=== PATIENT | female | born 1965 | race Caucasian/White ===

== ENCOUNTER 2019-05-09 18:59 | Inpatient (IN) ==
--- NOTE | 2019-05-09 19:08 | Emergency Department Note ---
Disposition Clinical Impression: Heart palpitations Congestive heart failure Qualifiers: Heart failure type: systolic Heart failure chronicity: unspecified Qualified Code(s): I50.20 - Unspecified systolic (congestive) heart failure Disposition: Admitted As Inpatient Time of Disposition: 21:40 General Adult HPI - General Chief complaint: ED Arrhythmia/Palpitations Stated complaint: Chest palpitations Time Seen by Provider: 05/09/19 19:04 - History of Present Illness Pain Scale: 1 - Related Data Previous Rx's Medication Instructions Recorded Aspirin 81 mg PO DAILY 30 Days #30 tab.chew 05/03/19 Atorvastatin [Lipitor] 80 mg PO HS 30 Days #30 tablet 05/03/19 Lisinopril [Zestril] 2.5 mg PO DAILY 30 Days #30 tablet 05/03/19 Metoprolol XL (24 HR) Succ [Toprol 50 mg PO DAILY 30 Days #30 05/03/19 Xl] tab.er.24h Spironolactone [Aldactone] 12.5 mg PO DAILY 30 Days #30 tablet 05/03/19 Allergies Allergy/AdvReac Type Severity Reaction Status Date / Time Sulfa (Sulfonamide Allergy Hives Verified 05/01/19 22:19 Antibiotics) Past Medical History - Past Medical History Medical history: Reports: other Surgical history: Reports: other Psychiatric history: Reports: no psych history - Social History Smoking Status: Former smoker Smokeless Tobacco Status: No Alcohol use: Reports: none Drug use: Reports: none Course Vital Signs Temperature 98.2 F 05/09/19 19:00 Pulse Rate 104 05/09/19 19:00 Respiratory Rate 18 05/09/19 19:00 Blood Pressure 119/83 05/09/19 19:00 O2 Sat by Pulse Oximetry 97 05/09/19 19:00 Temperature 98.2 F 05/09/19 19:13 Pulse Rate 94 05/09/19 19:41 Respiratory Rate 18 05/09/19 19:13 Blood Pressure 111/79 05/09/19 19:41 O2 Sat by Pulse Oximetry 96 05/09/19 19:41 Oxygen Delivery Oxygen Delivery Room Air Medical Decision Making - Lab Data Result diagrams: 05/09/19 19:32 05/09/19 19:32 Lab Results 05/09/19 05/09/19 05/09/19 Range/Units 19:32 19:32 19:32 WBC 8.7 (4.3-11.1) K/mcL RBC 4.64 (3.82-4.97) M/mcL Hgb 13.6 (11.5-15.4) g/dL Hct 41.3 (35.3-44.9) % MCV 89.0 (83.0-100.0) fL MCH 29.3 (28.0-33.3) pg MCHC 32.9 (31.6-35.5) g/dL RDW 12.9 (11.5-14.5) % Plt Count 257 (140-400) K/mcL MPV 10.0 (9.4-12.4) fL Immature Gran % 0.2 (0-4) % Seg Neutrophils % 66.7 % Lymphocytes % 25.4 % Monocytes % 5.5 % Eosinophils % 1.6 % Basophils % 0.6 % Neutrophils # 5.8 (1.6-8.9) K/mcL Lymphocytes # 2.2 (0.6-4.6) K/mcL Monocytes # 0.5 (0.0-1.3) K/mcL Eosinophils # 0.1 (0.0-0.6) K/mcL Basophils # 0.1 (0.0-0.2) K/mcL Sodium 145 (136-145) mEq/L Potassium 3.8 (3.5-5.1) mEq/L Chloride 105 (98-107) mEq/L Carbon Dioxide 23 (23-29) mEq/L BUN 23 H (6-20) mg/dL Creatinine 1.04 (0.60-1.20) mg/dL Est GFR ( Amer) > 60 (> 60) Est GFR (Non-Af Amer) 55 L (> 60) BUN/Creatinine Ratio 22 (6-26) Glucose 127 H (70-105) mg/dL Calculated Osmolality 305 H (280-300) Calcium 9.3 (8.6-10.3) mg/dL Magnesium 2.1 (1.6-2.6) mg/dL Total Bilirubin 0.3 (0.3-1.0) mg/dL AST 23 (13-39) Units/L ALT 27 (7-52) Units/L Alkaline Phosphatase 50 (34-104) Units/L Troponin I < 0.03 (< 0.04) ng/mL Serum Total Protein 6.3 L (6.4-8.9) g/dL Albumin 4.2 (3.5-5.7) g/dL Globulin 2.1 L (2.4-3.5) g/dL Albumin/Globulin Ratio 2.0 (1.1-2.2) Attestation Statement - Attestation Attestation: I reviewed the residents documentation and agree with the residents assessment and plan of care. I have personally had face to face time with the patient. (Brief History, Brief Exam, and MDM) I personally supervised and was present for the henry/critical portions of the following procedures completed by the resident: (add procedures performed here). [id number] time provided The patient has previously been evaluated for palpitations. She was started on a beta mary recently. She complains of palpitations. She appears in no ac bria distress on exam. She is able to handle it to the bathroom and back without limitation. Triage note and vitals reviewed by me. I attest to supervising the resident physician interpretation of the ECG I reviewed the labs dated 05/02/19
--- NOTE | 2019-05-09 19:20 | Emergency Department Note ---
Disposition Clinical Impression: Heart palpitations Congestive heart failure Qualifiers: Heart failure type: systolic Heart failure chronicity: unspecified Qualified Code(s): I50.20 - Unspecified systolic (congestive) heart failure Disposition: Admitted As Inpatient Referrals: NONE,PCP [Primary Care Provider] - Forms: ED Satisfaction Letter Time of Disposition: 20:31 General Adult HPI - General Chief complaint: ED Arrhythmia/Palpitations Stated complaint: Chest palpitations Time Seen by Provider: 05/09/19 19:04 - History of Present Illness HPI Narrative: Mrs. Pederson is a 53-year-old female presenting to the ED complaining of heart palpitations. Reports to her palpitation is similar to the ones that occurred 10 days ago. She reports she had heart palpitations 10 days ago as to why she had presented to the ED previously was admitted had cardiac workup and was discharged with a Holter monitor. She was recently discharged one week ago on 05/03/19 with past medical history of congestive heart failure diagnosed one week ago with EF of 15-20%. She is unsure as to why the heart palpitations started no recent inciting events. She reports she was sitting down and noted palpitations with some pain under her left axilla radiation of pain to her back. She is denying any worsening of shortness of breath or any chest pain with exertion. Reports she has been taking her medications as prescribed. Denies fever, chills, nausea, emesis, abdominal pain, worsening pain or lower extremity pain. Pain Scale: 1 - Related Data Previous Rx's Medication Instructions Recorded Aspirin 81 mg PO DAILY 30 Days #30 tab.chew 05/03/19 Atorvastatin [Lipitor] 80 mg PO HS 30 Days #30 tablet 05/03/19 Lisinopril [Zestril] 2.5 mg PO DAILY 30 Days #30 tablet 05/03/19 Metoprolol XL (24 HR) Succ [Toprol 50 mg PO DAILY 30 Days #30 05/03/19 Xl] tab.er.24h Spironolactone [Aldactone] 12.5 mg PO DAILY 30 Days #30 tablet 05/03/19 Allergies Allergy/AdvReac Type Severity Reaction Status Date / Time Sulfa (Sulfonamide Allergy Hives Verified 05/01/19 22:19 Antibiotics) Constitutional: Denies: fever, chills, weakness Eyes: Denies: eye pain, vision change ENT ED: Denies: ear pain, epistaxis, congestion, dysphagia Cardiovascular: Reports: chest pain, palpitations, dyspnea on exertion. Denies: edema Respiratory: Reports: dyspnea (Unchanged). Denies: cough, wheezes Gastrointestinal: Denies: abdominal pain, nausea, vomiting Genitourinary: Denies: urgency, dysuria, frequency Integumentary: Denies: rash, abrasion Neurological: Denies: headache, weakness, numbness Psychiatric: Denies: anxiety, depression Endocrine: Reports: fatigue Past Medical History - Past Medical History Medical history: Reports: other Surgical history: Reports: other Psychiatric history: Reports: no psych history - Social History Smoking Status: Former smoker Smokeless Tobacco Status: No Alcohol use: Reports: none Drug use: Reports: none Physical Exam - General General appearance: alert, in no apparent distress - Head Head exam: atraumatic, normocephalic - Eye Eye exam: Present: normal appearance, EOMI. Absent: scleral icterus, con junctival injection - ENT ENT exam: normal exam, normal oropharynx, mucous membranes moist - Neck Neck exam: Present: normal inspection, full ROM, trachea midline - Chest Chest inspection: Present: normal inspection, symmetric chest wall rise - Respiratory Respiratory exam: Present: normal lung sounds bilaterally. Absent: respiratory distress, wheezes - Cardiovascular Cardiovascular exam: Present: regular rate, +S1, +S2, other (EKG shows sinus tachycardia with left bundle-branch block) - Abdominal Exam Abdominal exam: Present: soft, Non-Tender, normal bowel sounds. Absent: distention, guarding, rigidity - Extremities Exam Extremities exam: Present: normal inspection, full ROM. Absent: tenderness, pedal edema - Neurological Exam Neurological exam: Present: alert, oriented X3 (Oriented to person place and time) - Psychiatric Psychiatric exam: Present: normal affect, normal mood - Skin Skin exam: Present: warm, dry, intact Course Vital Signs Temperature 98.2 F 05/09/19 19:00 Pulse Rate 104 05/09/19 19:00 Respiratory Rate 18 05/09/19 19:00 Blood Pressure 119/83 05/09/19 19:00 O2 Sat by Pulse Oximetry 97 05/09/19 19:00 Temperature 98.2 F 05/09/19 19:13 Pulse Rate 94 05/09/19 19:41 Respiratory Rate 18 05/09/19 19:13 Blood Pressure 111/79 05/09/19 19:41 O2 Sat by Pulse Oximetry 96 05/09/19 19:41 Oxygen Delivery Oxygen Delivery Room Air Medical Decision Making - MDM Narrative Medical decision making narrative: Ms. Pederson is a 53-year-old female presenting to the ED complaining of heart palpitations. She reports she was recently admitted to the hospital was recently diagnosed week ago with congestive heart failure with EF of 15-20%. She currently has a Holter monitor in place. She reports her heart palpitations had resolved but returned today additionally reported pain under her left axilla. Does not have a heart catheterization or an AICD placed. She reports she has been taking her medications as prescribed. Score of 4 due to age, history and left bundle branch block. Troponin within Normal Limits. EKG Still shows Left Bundle Branch Block. Due to her symptoms of heart palpitation although currently resolved and recent onset of chest pain that axilla will consider admission to the hospital service. Spoke with Dr. Sue who will accept the patient. - Medical Records Medical records reviewed: Yes I reviewed the patient's medical records. - Lab Data Lab results reviewed: Yes I reviewed the patient's lab results. Result diagrams: 05/09/19 19:32 05/09/19 19:32 Lab Results 05/09/19 05/09/19 05/09/19 Range/Units 19:32 19:32 19:32 WBC 8.7 (4.3-11.1) K/mcL RBC 4.64 (3.82-4.97) M/mcL Hgb 13.6 (11.5-15.4) g/dL Hct 41.3 (35.3-44.9) % MCV 89.0 (83.0-100.0) fL MCH 29.3 (28.0-33.3) pg MCHC 32.9 (31.6-35.5) g/dL RDW 12.9 (11.5-14.5) % Plt Count 257 (140-400) K/mcL MPV 10.0 (9.4-12.4) fL Immature Gran % 0.2 (0-4) % Seg Neutrophils % 66.7 % Lymphocytes % 25.4 % Monocytes % 5.5 % Eosinophils % 1.6 % Basophils % 0.6 % Neutrophils # 5.8 (1.6-8.9) K/mcL Lymphocytes # 2.2 (0.6-4.6) K/mcL Monocytes # 0.5 (0.0-1.3) K/mcL Eosinophils # 0.1 (0.0-0.6) K/mcL Basophils # 0.1 (0.0-0.2) K/mcL Sodium 145 (136-145) mEq/L Potassium 3.8 (3.5-5.1) mEq/L Chloride 105 (98-107) mEq/L Carbon Dioxide 23 (23-29) mEq/L BUN 23 H (6-20) mg/dL Creatinine 1.04 (0.60-1.20) mg/dL Est GFR ( Amer) > 60 (> 60) Est GFR (Non-Af Amer) 55 L (> 60) BUN/Creatinine Ratio 22 (6-26) Glucose 127 H (70-105) mg/dL Calculated Osmolality 305 H (280-300) Calcium 9.3 (8.6-10.3) mg/dL Magnesium 2.1 (1.6-2.6) mg/dL Total Bilirubin 0.3 (0.3-1.0) mg/dL AST 23 (13-39) Units/L ALT 27 (7-52) Units/L Alkaline Phosphatase 50 (34-104) Units/L Troponin I < 0.03 (< 0.04) ng/mL Serum Total Protein 6.3 L (6.4-8.9) g/dL Albumin 4.2 (3.5-5.7) g/dL Globulin 2.1 L (2.4-3.5) g/dL Albumin/Globulin Ratio 2.0 (1.1-2.2) - Radiology Data Radiology results reviewed: Yes I reviewed the patient's radiology results.
[2019-05-09 19:50] LABS: Basophils # 0.1 K/mcL (0.0-0.2); Basophils % 0.6 %; Eosinophils # 0.1 K/mcL (0.0-0.6); Eosinophils % 1.6 %; Hematocrit 41.3 % (35.3-44.9); Hemoglobin 13.6 g/dL (11.5-15.4); Immature Granulocytes % 0.2 % (0-4); Lymphocytes # 2.2 K/mcL (0.6-4.6); Lymphocytes % 25.4 %; Mean Corpuscular HGB Conc 32.9 g/dL (31.6-35.5); Mean Corpuscular Hemoglobin 29.3 pg (28.0-33.3); Monocytes # 0.5 K/mcL (0.0-1.3); Monocytes % 5.5 %; Neutrophils # 5.8 K/mcL (1.6-8.9); Platelet Count 257 K/mcL (140-400); Red Blood Count 4.64 M/mcL (3.82-4.97); Red Cell Distribution Width 12.9 % (11.5-14.5); Segmented Neutrophils % 66.7 %; White Blood Count 8.7 K/mcL (4.3-11.1)
[2019-05-09 20:10] LABS: Alanine Aminotransferase 27 Units/L (7-52); Albumin 4.2 g/dL (3.5-5.7); Alkaline Phosphatase 50 Units/L (34-104); Aspartate Amino Transferase 23 Units/L (13-39); BUN/Creatinine Ratio 22 (6-26); Bilirubin,Total 0.3 mg/dL (0.3-1.0); Blood Urea Nitrogen 23 mg/dL (6-20); Calcium 9.3 mg/dL (8.6-10.3); Carbon Dioxide 23 mEq/L (23-29); Chloride 105 mEq/L (98-107); Globulin 2.1 g/dL (2.4-3.5); Glucose 127 mg/dL (70-105); Magnesium 2.1 mg/dL (1.6-2.6); Osmolality,Calculated 305 (280-300); Potassium 3.8 mEq/L (3.5-5.1); Sodium 145 mEq/L (136-145); Total Protein 6.3 g/dL (6.4-8.9); eGFR For African Americans > 60 (> 60); eGFR For Non-African Americans 55 (> 60)
--- NOTE | 2019-05-09 20:59 | Internal Med History&Physical ---
Date of Encounter: 05/09/19 Time of Encounter: 20:48 Internal Medicine - H&P: HPI Chief complaint: Palpatations History of present illness: Ms. Johnson is a 53 year old female with a past medical history of melanoma and subclinical hypothyroidism who presented to the ED with complaints of palpitations. Of note, patient was recently evaluated for palpitations and atypical chest pain approximately one week ago. Patient was found to have a new left bundle branch block on EKG of unclear chronicity and a echocardiogram demonstrating a EF of 15-20% with severe global left ventricular systolic dysfunction. Nuclear stress test was negative for ischemia. Patient was ev aluated by cardiology, treated for CHF exacerbation and placed on a beta mary, JANE inhibitor and Aldactone. She was discharged with a Holter monitor with repeat echo in 4-6 weeks and follow-up with cardiology in one week after discharged. Patient presented to the ED today after reporting prolonged episode of palpitations earlier this afternoon. Patient was sitting at the time. She also noted a dull achy pain under her left axilla radiating to her back. No aggravating or alleviating factors. She did note some nausea and diaphoresis. No dizziness or lightheadedness. Reports she has been taking her medications as prescribed. Patient is scheduled to follow-up with her PCP tomorrow. Denies fever, chills, nausea, emesis, abdominal pain, worsening pain or lower extremity pain. Laboratory workup including Troponin within Normal Limits. EKG Still shows Left Bundle Branch Block. We will admit for observation and further workup. Past Med Surg Social Fam HX - Past Medical History Medical history: CHF, other Additional medical history: melanoma (on back) Psychiatric history: no psych history - Past Surgical History Surgical History: other Additional surgical history: melanoma removal 1998 - Social History Smoking Status: Former smoker Smokeless Tobacco Status: No Alcohol use: none Drug use: none Internal Medicine - H&P: Meds Aspirin 81 mg PO DAILY 30 Days #30 tab.chew 05/03/19 [Rx] Atorvastatin [Lipitor] 80 mg PO HS 30 Days #30 tablet 05/03/19 [Rx] Lisinopril [Zestril] 2.5 mg PO DAILY 30 Days #30 tablet 05/03/19 [Rx] Metoprolol XL (24 HR) Succ [Toprol Xl] 50 mg PO DAILY 30 Days #30 tab.er.24h 05/03/19 [Rx] Spironolactone [Aldactone] 12.5 mg PO DAILY 30 Days #30 tablet 05/03/19 [Rx] Allergy/AdvReac Type Severity Reaction Status Date / Time Sulfa (Sulfonamide Allergy Hives Verified 05/01/19 22:19 Antibiotics) All Systems PM: A 10-system review of systems was performed and is negative for pertinent findings except as documented above in the HPI. - Constitutional Constitutional: no chills, no fever(s), no night sweats - EENT Eyes: no change in vision, no discharge, no pain, no photophobia Ears: no ear discharge, no ear pain, no tinnitus Nose, mouth and throat: no dysphagia, no nasal discharge, no neck pain, no sore throat - Cardiovascular Cardiovascular ROS IM: no chest pain, no diaphoresis, no dyspnea, no lightheadedness, no palpitations, no syncope - Respiratory Respiratory: no cough, no dyspnea, no wheezing, no excessive phlegm production - Gastrointestinal Gastrointestinal: no abdominal pain, no diarrhea, no hematemesis, no hematochezia, no melena, no nausea, no vomiting - Genitourinary Genitourinary: no change in urinary stream, no dysuria, no flank pain, no hematuria - Musculoskeletal Musculoskeletal ROS IM: no numbness, no tingling - Integumentary Integumentary IM: no rash, no unusual bruising - Neurological Neurological ROS: no confusion, no convulsions, no focal weakness, no numbness, no tingling, no tremor(s) - Hematologic/Lymphatic Hematologic/Lymphatic: no easy bruising - Constitutional Vitals: Temp Pulse Resp BP Pulse Ox 98.2 F 94 18 111/79 96 05/09/19 19:13 05/09/19 19:41 05/09/19 19:13 05/09/19 19:41 05/09/19 19:41 Exam: General: Alert and oriented Skin:Normal color, no rash, no lesions. HEENT:EOM, pupils equal, round and reactive. Cardiovascular:Normal S1 & S2, no rubs, murmurs or gallops. No JVD. Pulse regular. Lungs:Normal breath sounds, no wheezes or crackles. Abdomen:Soft, non-tender, no rigidity. Extremities:No deformity, no edema or tenderness, no joint swelling or clubbing. Neurological:Normal cognition and motor skills. Pulses:Carotid and radial pulses normal +2. Rest of the physical exam is non contributory Internal Med - H&P Results - Labs CBC & Chem 7: 05/10/19 10:03 05/10/19 01:45 Labs: Short CBC 05/09/19 Range/Units 19:32 WBC 8.7 (4.3-11.1) K/mcL Hgb 13.6 (11.5-15.4) g/dL Hct 41.3 (35.3-44.9) % Plt Count 257 (140-400) K/mcL Neutrophils # 5.8 (1.6-8.9) K/mcL BMP 05/09/19 19:32 Sodium 145 Potassium 3.8 Chloride 105 Carbon Dioxide 23 BUN 23 H Creatinine 1.04 Glucose 127 H Calcium 9.3 Cardiac Enzymes 05/09/19 Range/Units 19:32 Troponin I < 0.03 (< 0.04) ng/mL Liver Function 05/09/19 Range/Units 19:32 Total Bilirubin 0.3 (0.3-1.0) mg/dL AST 23 (13-39) Units/L ALT 27 (7-52) Units/L Alkaline Phosphatase 50 (34-104) Units/L Albumin 4.2 (3.5-5.7) g/dL - Assessment and Plan (1) Atypical chest pain Current Visit: Yes Status: Acute Assessment and plan: Patient presenting with atypical chest pain described as dull ache under the left axilla occurring at rest with radiation to the back associated with nausea and diaphoresis. Initial troponin negative. EKG showing left bundle branch block unchanged from previous EKG. Symptoms have resolved. Low suspicion for ACS. -Trend troponin -Telemetry -Continue beta mary, aspirin, JANE inhibitor. -Consult cardiology (2) Heart palpitations Current Visit: Yes Status: Acute Assessment and plan: Patient presented with prolonged episode of palpitations occurring at rest. Patient does have a Holter monitor in place. During previous hospitalization she was diagnosed with subclinical hypothyroidism. -Continue patient on telemetry. -We will consult cardiology for further evaluation and assessment of Holter monitor. (3) CHF (congestive heart failure) Current Visit: Yes Status: Acute Assessment and plan: TTE 05/01/19: LVEF 15-20%, mildly dilated LV, severe global LV systolic dysfunction, no LV thrombus, mild MR, mild PH, normal RV structure and function. -Nuclear stress completed yesterday was negative for ischemia; however possible infarct could not be ruled out--anterior/anteroseptal/inferoseptal/inferior and apex -No evidence of volume overload. Continue patient's home medications. Qualifiers: Heart failure type: systolic Heart failure chronicity: unspecified Qualified Code(s): I50.20 - Unspecified systolic (congestive) heart failure (4) Subclinical hypothyroidism Current Visit: No Status: Chronic Assessment and plan: During previous admission TSH found to be 9.8 with a free T4 of 0.87. Patient currently not on thyroid replacement therapy. Patient was to follow-up with her PCP which is scheduled for tomorrow for further workup. (5) Cardiomyopathy Current Visit: Yes Status: Acute Assessment and plan: TTE 05/01/19: LVEF 15-20%, mildly dilated LV, severe global LV systolic dysfunction, no LV thrombus, mild MR, mild PH, normal RV structure and function. -Nuclear stress completed negative for ischemia; however possible infarct could not be ruled out--anterior/anteroseptal/inferoseptal/inferior and apex. Suspect NICMP, ? tachycardia induced. -Continue BB, jane inhibitor, aldactone. Qualifiers: Cardiomyopathy type: unspecified Qualified Code(s): I42.9 - Cardiomyopathy, unspecified (6) DVT prophylaxis Current Visit: No Status: Acute Assessment and plan: Subcutaneous heparin - Time Spent With Patient Total time spent is greater than 50% in coordination of care (as documented) at patient's floor/unit and/or counseling patient:
[2019-05-09] MEDS ORDERED: Naloxone 0.4 MG/ML INJ IVP PRN (21:23)
[2019-05-09] MEDS: Metoprolol XL (24 HR) Succ 50 MG TAB.ER.24H PO SCH (22:04)
[2019-05-09] MEDS: Aspirin 81 MG TAB.CHEW PO SCH (22:04)
[2019-05-09] MEDS: *HR* Heparin 5,000 UNIT/ML VIAL SQ SCH (22:06)
[2019-05-09] MEDS: Acetaminophen 325 MG TABLET PO PRN (22:37)
[2019-05-10 02:48] LABS: Hematocrit 39.6 % (35.3-44.9); Mean Corpuscular HGB Conc 32.8 g/dL (31.6-35.5); Mean Corpuscular Hemoglobin 29.3 pg (28.0-33.3); Mean Corpuscular Volume 89.2 fL (83.0-100.0); Mean Platelet Volume 10.6 fL (9.4-12.4); Platelet Count 253 K/mcL (140-400); Red Blood Count 4.44 M/mcL (3.82-4.97); White Blood Count 7.8 K/mcL (4.3-11.1)
[2019-05-10 03:13] LABS: Alanine Aminotransferase 24 Units/L (7-52); Albumin 3.7 g/dL (3.5-5.7); Albumin/Globulin Ratio 1.9 (1.1-2.2); Alkaline Phosphatase 44 Units/L (34-104); Aspartate Amino Transferase 19 Units/L (13-39); BUN/Creatinine Ratio 22 (6-26); Bilirubin,Total 0.5 mg/dL (0.3-1.0); Blood Urea Nitrogen 21 mg/dL (6-20); Calcium 9.1 mg/dL (8.6-10.3); Carbon Dioxide 23 mEq/L (23-29); Chloride 108 mEq/L (98-107); Glucose 97 mg/dL (70-105); Osmolality,Calculated 293 (280-300); Potassium 3.7 mEq/L (3.5-5.1); Sodium 140 mEq/L (136-145); Total Protein 5.7 g/dL (6.4-8.9); eGFR For African Americans > 60 (> 60); eGFR For Non-African Americans > 60 (> 60)
[2019-05-10 03:21] LABS: Thyroid Stimulating Hormone 4.293 mcIU/mL (0.340-5.600)
[2019-05-10] MEDS: *HR* Heparin 5,000 UNIT/ML VIAL SQ SCH (04:26)
--- NOTE | 2019-05-10 08:39 | Cardiology Consult Note ---
<Torie Avelar N - Last Filed: 05/10/19 10:10> Date of Encounter: 05/10/19 Time of Encounter: 08:38 Assessment and Plan (1) NSTEMI (non-ST elevated myocardial infarction) Current Visit: Yes Status: Acute Patient presented with atypical chest pain and palpitations, with associated nausea and diaphoresis. Initial troponin <0.03; however, repeat troponins show elevation at 0.13, 0.35. Patient denies any recurrent palpitations since the t nicola of admission, though she did have bilateral hand tingling earlier this morning. Review of overnight telemetry shows average HR 82 with no significant pauses and no signifiant ventricular ectopy. ECG shows LBBB, but no new ST or T-wave abnormalities as compared to prior studies. Recommend continuation of heparin gtt and NPO diet in anticipation of LHC later today. (2) Cardiomyopathy Current Visit: Yes Status: Acute Unknown cause; consider ischemic vs. nonischemic etiologies. Patient reports first experiencing palpitations prior to ED visit and subsequent hospitalization on 05/01/2019. Medication therapy with spironolactone, toprol, and lisinopril was initiated during that admission, which patient reports tolerating well. She denies any recurrent palpitations prior to yesterday afternoon. Patient does have elevated troponins that are uptrending: <0.03, 0.13, 0.35. With her underlying cardiomyopathy of unknown origin and chest discomfort/palpitations, patient is at high risk for sudden cardiac . Recommend [facility] for further evaluation and intervention. Qualifiers: Cardiomyopathy type: unspecified Qualified Code(s): I42.9 - Cardiomyopathy, unspecified (3) Left bundle branch block (LBBB) Current Visit: No Status: Chronic (4) CHF (congestive heart failure) Current Visit: Yes Status: Acute Patient found to have CHF, with LVEF 15-20% on echocardiogram performed on 05/01/2019. Laboratory studies were significant for mild elevation in BNP. Clinically, patient does not appear to be volume overloaded and does not appear to be in an acute CHF exacerbation. Continue current medications of spironolactone 12.5mg, toprol XL 50mg, and lisinopril 2.5mg. Qualifiers: Heart failure type: systolic Heart failure chronicity: unspecified Qualif ied Code(s): I50.20 - Unspecified systolic (congestive) heart failure (5) Subclinical hypothyroidism Current Visit: No Status: Chronic Patient was found to have elevated TSH of 9.844 on 05/01/2019, with T3/T4 WNL. Repeat TSH on 05/10/2019 was WNL at 4.293. Patient has not been started on medical therapy for this problem, as she was supposed to establish care with a new PCP this morning. Further workup and management per primary team. Discussion w patient/family: The assessment and plan as outlined above was discussed with the patient and/or family members who expressed understanding and agreement. All questions were answered. Thank you for involving us in the care of your patient. Please call with any questions. History of Present Illness Consult date: 05/09/19 Requesting physician: Torsten [place] Consult reason: Atypical chest pain/palpitations Chief complaint: Palpitations History of present illness: Ms. Johnson is a 53 year old female with a history of melanoma who presented to the emergency department yesterday for evaluation of palpitations. Patient was hospitalized at this facility on 05/01/2019 for the same problem. Cardiac workup during that admission revealed previously undiagnosed LBBB, cardiomyopathy, and CHF with LVEF 15-20%. Patient was started on medication for management, and discharged with a 4-week holter monitor on 05/04/2019. She was also found to have an elevated TSH and normal T3/T4 during that visit, consistent with for subclinical hypothyroidism; however, no treatment has been initiated thus far. Cardiology consult was placed for recommendations regarding recurrent palpitations and atypical chest pain. Patient reports that she developed palpitations yesterday afternoon that were not precipitated by any particular activity, and were associated with substernal chest "discomfort" with radiation to the left axilla/ribcage. She also reports associated diaphoresis and nausea, that started at the same time as her palpitations. These symptoms resolved after several hours yesterday, though she does report some bilateral hand tingling earlier this morning. She denies any shortness of breath, but does note that she has been more fatigued recently, though not to the point of limiting her daily activities. Previous cardiac testing: * ECG 05/01/2019: Sinus tachycardia with PACs. Probable left atrial enlargement. Left axis deviation. Left bundle branch block. * Echocardiogram 05/01/2019: LVEF 15-20%. Mildly dilated left ventricle. Severe global left ventricular systolic dysfunction. Indeterminate diastolic function. There is no LV thrombus. Atypical septal motion consistent with bundle branch block. Normal right ventricular structure and function. Mild mitral regurgitation. Mild pulmonary hypertension. * Regadenoson Nuclear Stress Test 05/01/2019: Pharmacologic stress ECG non-diagnostic for ischemia due to baseline LBBB. Gated EF = 18%. Left ventricle dilated. LVEDV = 243mL. Global hypokinesis of left ventricle in stress. Large sized, moderate intensity, fixed perfusion defect throughout anterior, anteroseptal, inferoseptal, inferior, and apex segments. Prior infarct(s) not excluded. Perfusion imaging negative for ischemia. Past Med Surg Social Fam HX - Past Medical History Medical history: CHF, other Additional medical history: melanoma (on back) Psychiatric history: no psych history - Past Surgical History Surgical History: other Additional surgical history: melanoma removal 1998 - Social History Smoking Status: Former smoker Smokeless Tobacco Status: No Alcohol use: none Drug use: none - Family History Grandfather Hx Family Cardiac Disorders: Yes Medications and Allergies Aspirin 81 mg PO DAILY 30 Days #30 tab.chew 05/03/19 [Rx] Atorvastatin [Lipitor] 80 mg PO HS 30 Days #30 tablet 05/03/19 [Rx] Lisinopril [Zestril] 2.5 mg PO DAILY 30 Days #30 tablet 05/03/19 [Rx] Metoprolol XL (24 HR) Succ [Toprol Xl] 50 mg PO DAILY 30 Days #30 tab.er.24h 05/03/19 [Rx] Spironolactone [Aldactone] 12.5 mg PO DAILY 30 Days #30 tablet 05/03/19 [Rx] Allergy/AdvReac Type Severity Reaction Status Date / Time Sulfa (Sulfonamide Allergy Hives Verified 05/01/19 22:19 Antibiotics) All Systems Review: The remainder of the systems were reviewed and are negative - Constitutional Constitutional: fatigue, no weakness - Cardiovascular Cardiovascular: chest pain at rest, chest pain with exertion, diaphoresis, radiating jaw, neck or arm pain, palpitations, no claudication, no dyspnea at rest, no dyspnea on exertion, no irregular heart rhythm, no leg edema - Respiratory Respiratory: no dyspnea - Gastrointestinal Gastrointestinal: nausea, no abdominal pain - Neurological Neurological: tingling Physical Examination Vital Signs, Last 4 Hours Temp Pulse Resp BP Pulse Ox 05/10/19 07:36 97.5 F L 94 16 102/71 95 General: Conversant, No Apparent Distress HEENT: Atraumatic, Normocephaly, Mucus Membranes Moist Cardiac: Reg Rate and Rhythm, Normal S1 and S2, No Murmur Lungs: Normal Breath Sounds, No Wheeze, Rales, Rhonchi Neuro: Alert and responsive, No focal deficits noted Abdomen: Soft, Non-Tender Skin: No rashes noted on visualized skin Musculoskeletal: No Chest Wall Tenderness Extremities: No Clubbing, No Cyanosis, No Edema, Normal Pulses Results 05/10/19 01:45 05/10/19 01:45 Lab Results 05/09/19 05/09/19 05/09/19 19:32 19:32 19:32 WBC 8.7 Hgb 13.6 Hct 41.3 Plt Count 257 Sodium 145 Potassium 3.8 Chloride 105 Carbon Dioxide 23 BUN 23 H Creatinine 1.04 Glucose 127 H Calcium 9.3 Magnesium 2.1 Total Bilirubin 0.3 AST 23 ALT 27 Alkaline Phosphatase 50 Troponin I < 0.03 B-Natriuretic Peptide TSH 05/10/19 05/10/19 05/10/19 01:45 01:45 01:45 WBC 7.8 Hgb 13.0 Hct 39.6 Plt Count 253 Sodium 140 Potassium 3.7 Chloride 108 H Carbon Dioxide 23 BUN 21 H Creatinine 0.94 Glucose 97 Calcium 9.1 Magnesium Total Bilirubin 0.5 AST 19 ALT 24 Alkaline Phosphatase 44 Troponin I 0.13 H* B-Natriuretic Peptide TSH 4.293 05/10/19 01:45 WBC Hgb Hct Plt Count Sodium Potassium Chloride Carbon Dioxide BUN Creatinine Glucose Calcium Magnesium Total Bilirubin AST ALT Alkaline Phosphatase Troponin I B-Natriuretic Peptide 554 H TSH Consult Discharge Plan - Plan Referrals: NONE,PCP [Primary Care Provider] - <Shavonne Prakash - Last Filed: 05/10/19 11:05> Date of Encounter: 05/10/19 - Attending Attestation I examined this patient and my medical decision-making was reviewed with the Resident Physician. I agree with the documented findings, disposition and treatment plan as described. Ms. Johnson presents for recurrent palpitations now having chest discomfort. Recently admitted and diagnosed with new cardiomyopathy. Patient developed palpitations yesterday associated with chest pressure prompting her visit. No symptoms of palpitations or chest pressure overnight. Denies dyspnea, LE edema, abdominal distention, PND or orthopnea. AAOx3, conversant, NAD on exam No appreciable cardiac murmurs, normal S1/S2, no gallop/rub, no congestive signs, normal distal pulses ECG demonstrates LBBB unchanged from prior Labs demonstrate elevated troponin, normal renal function, normal TSH, BNP 554 Impression/Plan: 1. NSTEMI: Elevated troponin now 0.35 in setting of chest discomfort and recent abnormal stress test demonstrating possible prior infarct. Recently diagnosed with new cardiomyopathy, LVEF 15-20%. Discussed options with patient including R/B/A of [facility]. Patient expressed understanding and has decided to proceed. All questions answered. No upcoming elective procedures. Normal renal function. Full Code. 2. Cardiomyopathy: Newly diagnosed, etiology uncertain at this time. Recommend [facility] to rule out obstructive CAD. She is not volume overloaded on exam. Continue medical therapy. Assessment and Plan Discussion w patient/family: The assessment and plan as outlined above was discussed with the patient and/or family members who expressed understanding and agreement. All questions were answered. Thank you for involving us in the care of your patient. Please call with any questions. History of Present Illness History of present illness: Ms. Johnson is a 53 year old female All Systems Review: The remainder of the systems were reviewed and are negative Physical Examination Vital Signs, Last 4 Hours Temp Pulse Resp BP Pulse Ox 05/10/19 09:35 99.5 F 82 16 107/74 98 05/10/19 07:36 97.5 F L 94 16 102/71 95 Results 05/10/19 10:03 05/10/19 01:45 Lab Results 05/09/19 05/09/19 05/09/19 19:32 19:32 19:32 WBC 8.7 Hgb 13.6 Hct 41.3 Plt Count 257 INR Sodium 145 Potassium 3.8 Chloride 105 Carbon Dioxide 23 BUN 23 H Creatinine 1.04 Glucose 127 H Calcium 9.3 Magnesium 2.1 Total Bilirubin 0.3 AST 23 ALT 27 Alkaline Phosphatase 50 Troponin I < 0.03 B-Natriuretic Peptide TSH 05/10/19 05/10/19 05/10/19 01:45 01:45 01:45 WBC 7.8 Hgb 13.0 Hct 39.6 Plt Count 253 INR Sodium 140 Potassium 3.7 Chloride 108 H Carbon Dioxide 23 BUN 21 H Creatinine 0.94 Glucose 97 Calcium 9.1 Magnesium Total Bilirubin 0.5 AST 19 ALT 24 Alkaline Phosphatase 44 Troponin I 0.13 H* B-Natriuretic Peptide TSH 4.293 05/10/19 05/10/19 05/10/19 01:45 08:59 10:03 WBC 8.9 Hgb 13.9 Hct 42.5 Plt Count 279 INR Sodium Potassium Chloride Carbon Dioxide BUN Creatinine Glucose Calcium Magnesium Total Bilirubin AST ALT Alkaline Phosphatase Troponin I 0.35 H* B-Natriuretic Peptide 554 H TSH 05/10/19 10:03 WBC Hgb Hct Plt Count INR 1.1 Sodium Potassium Chloride Carbon Dioxide BUN Creatinine Glucose Calcium Magnesium Total Bilirubin AST ALT Alkaline Phosphatase Troponin I B-Natriuretic Peptide TSH
[2019-05-10] MEDS ORDERED: *HR* Heparin 5,000 UNIT/ML VIAL IVP PRN ×2 (09:40)
[2019-05-10] MEDS ORDERED: *HR* Heparin 5,000 UNIT/ML VIAL IVP ONE (09:40)
[2019-05-10] MEDS ORDERED: Heparin 25,000 UNIT/250 ML D5W 25,000 UNIT/250 ML IV.SOLN IVC SCH (09:45)
[2019-05-10 10:29] LABS: Hematocrit 42.5 % (35.3-44.9); Hemoglobin 13.9 g/dL (11.5-15.4); Mean Corpuscular HGB Conc 32.7 g/dL (31.6-35.5); Mean Corpuscular Hemoglobin 28.8 pg (28.0-33.3); Mean Corpuscular Volume 88.2 fL (83.0-100.0); Mean Platelet Volume 10.2 fL (9.4-12.4); Platelet Count 279 K/mcL (140-400); Red Blood Count 4.82 M/mcL (3.82-4.97); Red Cell Distribution Width 12.9 % (11.5-14.5); White Blood Count 8.9 K/mcL (4.3-11.1)
[2019-05-10] MEDS: Spironolactone 25 MG TABLET PO SCH (10:34)
[2019-05-10 10:38] LABS: Heparin anti-factor XA UFH 0.04 IU/mL (0.30-0.70); INR 1.1; Prothrombin Time 12.2 Seconds (9.4-12.1)
[2019-05-10] MEDS ORDERED: ISOVUE-370 200 ML INFUS..BTL ONE (13:38)
[2019-05-10] MEDS ORDERED: 0.9 % Sodium Chloride 1,000 ML ONE ×2 (13:38)
[2019-05-10] MEDS ORDERED: Heparin 1,000 UNITS/500 mL 500 ML ONE (13:38)
[2019-05-10] MEDS ORDERED: *HR* Heparin 10,000 UNIT/10 ML VIAL ONE (13:38)
[2019-05-10] MEDS ORDERED: Nitroglycerin 1,000 MCG/10 ML VIAL IV ONE (13:38)
--- NOTE | 2019-05-10 13:43 | Pre-Sedation Evaluation ---
Pre-sedation evaluation - Pre-sedation checklist Date of procedure: 05/10/19 Procedure: [facility] Recent Vitals: Last Vital Signs Temp 98.4 F 05/10/19 11:24 Pulse 88 05/10/19 11:24 Resp 16 05/10/19 11:24 BP 102/68 05/10/19 11:24 Pulse Ox 97 05/10/19 11:24 H&P (including ROS) documented in medical record: Yes Previous reaction to sedatives/anesthetics: No Dietary Status: NPO 6 hours prior to procedure Airway Assessment: Patient can open mouth completely, TMJ function normal, Micrognathia (under-bite, receding chin) absent, Neck with adequate range of motion Dentition: No loose teeth or bridges Possible difficult airway: No ASA Classification *see protocol: CLASS II-Mild systemic disease Plan of Care: Pt appropriate candidate for procedure/moderate/conscious sedation, Risks/benefits of procedure/sedation discussed w/ patient/family Cardiac Registry (Cardio Only) - Functional Capacity Functional Capacity: >=4 METS with symptoms - Clincal Frailty Scale Clinical Frailty Scale: Vulnerable
[2019-05-10] MEDS ORDERED: *HR* Midazolam HCl 2 MG/2 ML VIAL ONE (13:55)
[2019-05-10] MEDS ORDERED: *HR* FentaNYL (PF) 100 MCG/2 ML VIAL ONE (13:55)
--- NOTE | 2019-05-10 14:40 | Invasive Diagnostic Lab Proc ---
Name: Becky Johnson Date of Study: 05/10/2019 Date: 1965 Ht: 62.9in Medical Record#: [id number] Age: 53 Wt: 153.22lb Gender: Female BSA: 1.73 Order #: [id number] BMI: 27.22 Physicians Procedure Physician: Mira Jimenez MD, [facility] Referring MD: Referring MD: Staff Name Position Time In Philly Short RN Monitor 01:50 PM Radha Tony RN It Instructor 01:50 PM Santa Enamorado RT (R) Scrub 01:50 PM Philly Short RN Monitor [place]am[place]ado RT (R) Scrub Radha Tony RN It Instructor 01:52 PM Indications Indication Non-Stemi Procedures Performed Procedure L HRT ARTERY/VENTRICLE ANGIO Pre-Procedure Checklist Informed consent is complete signed and on chart. H&P is on chart. ID band is on and ID verified with patient. Patient NPO for procedure The procedure was described for the patient and questions were answered. Blood Pressure: 102/68 ECG is on chart. Rhythm: NSR Plan of Care Patient will tolerate the procedure without complications. Adequate level of comfort will be maintained. Hemodynamics will remain stable Patient will recover from procedure without complications. Respiratory function will be maintained. Cardiac rhythm will remain stable. Patient temperature will be maintained. Patient and/or family have verbalized understanding of the procedure. Patient Education Chief Complaint/Reason for Test: Cardiac Cath Developmental Category: Adult (18-64 years) Developmentally Appropriate for Age: Yes Learning Barriers: None Education Needs: Procedure Education Method: Verbal Information Taught: Cardiac Cath Educational Evaluation: Able to repeat information Intravenous Access Time IV Size Location DC'd Fluid/Drip Rate Units RN 01:50 PM 18g 1 1/4" Patent On Arrival Rt Wrist 0.9NaCl 25 ml/hr Radha Tony RN Allergies Sulfa (Sulfonamide Antibiotics) Vital Signs Time BP (mmHg) HR (bpm) O2 Sat. RR (bpm) LOC 02:04 PM / % 5 = Fully awake and oriented or at pre-proc level 01:57 PM 118 / 78 111 99 % 18 02:02 PM 111 / 78 110 98 % 12 02:07 PM 105 / 73 103 98 % 26 02:12 PM 104 / 73 100 98 % 17 Procedural Medications Time Medication Dose Units Method Given By 02:01 PM Versed 2 mg Intravenous Radha Tony RN 02:01 PM Fentanyl 50 mcg Intravenous Radha Tony RN 02:01 PM Oxygen 2 L/min nasal cannula Radha Tony RN 02:01 PM Lidocaine 2% 18 ml Subcutaneous Mira Jimenez MD, [facility] ASA Classification: CLASS II- Mild systemic disease (i.e. well-controlled diabetes, hypertension, asthma, cigarette smoking) Luz Score Preprocedure Postprocedure Activity 2- Moves 4 extremities sustained head lift Activity Circulation 2- SBP +/= 20 points of pre-anesthetic level Circulation Consciousness 2- Awake and alert oriented x 3 Consciousness O2 Saturation 2- Able to maintain O2 satruation of 92% on room air O2 Saturation Respiratory 2- Able to deep breathe and cough well Respiratory Total Score 10 Total Score Contrast Agent: Isovue Diagnostic Contrast: 58 ml Total Contrast: 58 ml Fluoro Dose: 17 mGy Procedure Log Time Note Enter By 01:51 PM Pt arrived to hospital laboratory technician 2 at 13:51 gdeck 01:52 PM Philly Short RN Position: Monitor Time in: 13:50 gdeck 01:52 PM Santa Enamorado (R) Position: Scrub Time in: 13:50 gdeck 01:52 PM Radha Tony RN Position: It Instructor Time in: 13:50 gdeck 01:52 PM Case Delayed No gdeck 01:55 PM Procedure start 13:55 gdeck 01:55 PM Physician arrived 13:55 gdeck 01:55 PM Robbi and vladislav completed gdeck 01:55 PM Sign in performed according to hospital policy. Informed consent was obtained. gdeck 01:56 PM CathStat 01:56 PM Vitals capture started with the following parameters, Patient=Adult, Interval=5 min, Initial Fksnbcze=340 mmHg, Deflation Rate=3 mmHg, Cuff placed on Right Arm 01:57 PM LY=337 bpm, WPCA=419/78 mmhg, SpO2=99.0 %, Resp=18 B/min 01:57 PM Hair removed from procedure site in procedure lab using clippers. Bilateral groin prepped with Chloraprep by Santa Enamorado (R), then patient was draped. Skin intact. gdeck 02:00 PM ASA Class CLASS II- Mild systemic disease (i.e. well-controlled diabetes, hypertension, asthma, cigarette smoking) gdeck 02:00 PM Clinical Presentation: Stable angina gdeck 02:00 PM Time out was performed according to hospital policy. Conscious sedation and anesthesia was achieved (see medication log with in this report above) gdeck 02:01 PM Time: 14:01 Versed 2 mg Intravenous Given by Radha Tony RN gdeck 02:01 PM Time: 14:01 Fentanyl 50 mcg Intravenous Given by Radha Tony RN gdeck 02: PM Time: 14: Oxygen on at 2 L/min per nasal cannula by Radha Tony RN gdeck 02:02 PM Time: 14:01 18 ml Lidocaine 2% to right groin Subcutaneous Given by Mira Jimenez MD, [facility] gdeck 02:02 PM AP=678 bpm, DIJB=299/78 mmhg, SpO2=98.0 %, Resp=12 B/min, EtCO2=35 mmHg 02:03 PM Access obtained by percutaneous puncture. 5Fr 10cm Terumo Parks sheath placed in right Femoral artery. [id number] gdeck 02:03 PM Pressure channel 1 zeroed. 02:03 PM 5Fr FL 4 catheter inserted over the wire DN gdeck 02:03 PM LCA angiography performed in multiple views. gdeck 02:03 PM Recorded Pressure: Ao, XS=631, Condition=Condition 1 (Aorta) Ao 116/87/97 02:04 PM Patient charges- Angio tray pack, Navilyst 3mm J, Pulse Oximetry and ACIST tubing and transducer gdeck 02:04 PM Time: 14:04 Patient comfortable and pain free: Yes gdeck 02:05 PM Time: 14:04LOC: 5 = Fully awake and oriented or at pre-proc level gdeck 02:05 PM Catheter removed gdeck 02:05 PM 5Fr FR 4 catheter inserted over the wire DN gdeck 02:05 PM RCA angiography performed in multiple views. gdeck 02:06 PM Recorded Pressure: Ao, ZB=259, Condition=Condition 1 (Aorta) Ao 109/-1/32 02:06 PM Catheter removed gdeck 02:07 PM Coronary Dominance: right gdeck 02:07 PM 5Fr Pigtail catheter inserted over the wire DN gdeck 02:07 PM Catheter crossed the aortic valve and was selectively placed in the left ventricle.07/15 Pressures recorded on pullback for left heart catheterization. gdeck 02:07 PM WB=644 bpm, VTFN=484/73 mmhg, SpO2=98 %, Resp=26 B/min 02:07 PM Bolus angiogram of left Ventricle complete: 8 ml/sec for a total of 24 mls gdeck 02:07 PM Pressure channel 1 zeroed. 02:08 PM Recorded Pressure: LV, CN=765, Condition=Condition 1 (Left Ventricle) LV 105/1/98 02:08 PM Recorded Pressure: LV, CC=960, Condition=Condition 1 (Left Ventricle) LV 102/11/99 02:08 PM Recorded Pressure: LV, Ao, GD=491, Condition=Condition 1 (Left Ventricle) LV 84/33/81, (Aorta) Ao 87/37/61 02:09 PM Catheter removed over the wire gdeck 02:09 PM Time: 14:04 Patient comfortable and pain free: Yes gdeck 02:10 PM right femoral angiogram hand injected gdeck 02:10 PM Procedure completed at 14:10 05/10/2019 gdeck 02:12 PM Sign out completed: Radiation Dose 57 mGy, 16.8 Gy/cm2 Fluoro Time: 1 Isovue 370 - 200ml contrast 58 ml given by Mira Jimenez MD, [facility]. Complications: None. 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 Sedation minutes 9. Cardiac Rehab Consult needed: No. Confirmed administered medications: Yes gdeck 02:12 PM MW=918 bpm, WPYT=433/73 mmhg, SpO2=98 %, Resp=17 B/min 02:12 PM Arterial sheath pulled, Mynx closure device used and was Successful [id number] S/N. gdeck 02:12 PM Post ECG Sinus Tachycardia gdeck 02:12 PM Post Blood Pressure 104/73 gdeck 02:13 PM 14:12 Post Pulses Bilateral DP & PT 2+ gdeck 02:13 PM Information taught Mynx and Cardiac Cath gdeck 02:13 PM Education needs Procedure and Plan of Care gdeck 02:13 PM Learning barriers :None gdeck 02:13 PM Education Methods Verbal gdeck 02:13 PM Education evaluation Able to repeat information gdeck 02:15 PM Time: 14:09 Patient comfortable and pain free: Yes gdeck 02:15 PM Site status No bleeding/hematoma - Rt Groin as reported by Santa Enamorado RT (R) at 14:15 gdeck 02:15 PM Opsite applied gdeck 02:16 PM Delay to floor No gdeck 02:16 PM Family placed in consult room. gdeck 02:16 PM Complications: None gdeck 02:16 PM Report given to Pooja RAMOS Pt taken to 3B Room #38. 14:16 gdeck 02:18 PM Patient out of room: 14:18 gdeck 02:21 PM Did you address UMBERTO flow and Dominance? YesCoronary Dominance: right gdeck 02:33 PM What is the NYHA Class? Class 3 gdeck Complications Complication None None Hemodynamics Pressures Site Systolic/A Wave Diastolic/V Wave Mean AO 116 87 97 AO 109 -1 32 LV 105 1 98 LV 102 11 99 LV 84 33 81 AO 87 37 61 Post Procedure Information Blood Pressure: 104/73 mmHg Rhythm: Sinus Tachycardia Post procedural instructions were given Closure Device Time Device Success/Fail 05/10/2019 2:15:00 PM MynxGrip Successful Site Checks Time Location Status Staff Sheath In? Note 02:15 PM Rt Groin No bleeding/hematoma Santa Enamorado RT (R) Pulses Time Site Pre-Procedure Post-Procedure Note Bilateral radial 2+ Bilateral DP 2+ 2:12:00 PM Bilateral DP & PT 2+ Updated by Philly Short RN on 05/10/2019 2:34:20 PM Philly Short RN electronically signed on 05/10/2019 2:35:26 PM with status of Final
--- NOTE | 2019-05-10 16:13 | Internal Med Progress Note ---
Hospitalist Progress Note - Encounter Date of Encounter: 05/10/19 Time of Encounter: 16:09 - Subjective Interval History: Ms. Johnson is a 53 year old female with a past medical history of melanoma and subclinical hypothyroidism who recently dx with severe cardiomyopathy / systolic CHF with LVEF @ 15-20%, now she presented to the ED with complaints of p alpitations and SOB. Patient was found to have a new left bundle branch block on EKG of unclear chronicity and a echocardiogram demonstrating a EF of 15-20% with severe global left ventricular systolic dysfunction. Nuclear stress test was negative for ischemia. Patient was evaluated by cardiology, treated for CHF exacerbation and placed on a beta mary, JANE inhibitor and Aldactone. She was discharged with a Holter monitor with repeat echo in 4-6 weeks and follow-up with cardiology in one week after discharged. She also noted a dull achy pain under her left axilla radiating to her back. EKG Still shows Left Bundle Branch Block. Patient was admitted in the hospital and placed on hall monitor. Her troponin started trending up, peaked at 0.35. She was started on Heparin gtt. She denied any active CP - Exam Vitals: Temp Pulse Resp BP Pulse Ox 98.4 F 88 16 102/68 97 05/10/19 11:24 05/10/19 11:24 05/10/19 11:24 05/10/19 11:24 05/10/19 11:24 Exam: Gen: Alert, awake, Oriented to time,place and person Chest: Diminished breath sounds B/L, No wheezing, No crackles, No rales Heart: S1S2+ RRR No murmurs Abd: Soft, NT, BS +, No organomegaly Ext: No edema, pulses are palpable, No calf tenderness Neuro : No acute focal neuro deficits noticed Skin: No rash. - Assessment and Plan (1) Atypical chest pain Current Visit: Yes Status: Acute Assessment and Plan: Patient presenting with atypical chest pain described as dull ache under the left axilla occurring at rest with radiation to the back associated with nausea and diaphoresis She did have NSTEMI - Trop peaked at 0.35 Cont ASA,Lipitor, Metoprolol, and Lisinopril She was seen by cardiology and scheudled for [facility] cont Heparin gtt Patient does need to stay in the hospital more than 2 midnights due to her complex medical problems. So we will change him to full admission today. I did review my colleague Dr. Montana's H & P including HPI, PMH, PSH, FH, SH, and ROS no changes noticed (2) NSTEMI (non-ST elevated myocardial infarction) Current Visit: Yes Status: Acute Assessment and Plan: She did have NSTEMI - Trop peaked at 0.35 Cont ASA,Lipitor, Metoprolol, and Lisinopril She was seen by cardiology and scheudled for [facility] cont Heparin gtt (3) Cardiomyopathy Current Visit: Yes Status: Acute Assessment and Plan: TTE 05/01/19: LVEF 15-20%, mildly dilated LV, severe global LV systolic dysfunction, no LV thrombus, mild MR, mild PH, normal RV structure and function. In mild exacerbation given lasix IV x 1 dose resumed home meds, ASA, Lipitor, Aldactone , Metoprolol and Lisinopril (4) CHF (congestive heart failure) Current Visit: Yes Status: Acute Assessment and Plan: as above (5) Subclinical hypothyroidism Current Visit: No Status: Chronic Assessment and Plan: started on low dose synthroid (6) Heart palpitations Current Visit: Yes Status: Acute Assessment and Plan: scheduled for [facility] today (7) DVT prophylaxis Current Visit: No Status: Acute Assessment and Plan: on heparin - Time Spent with Patient Total time spent is greater than 50% in coordination of care (as documented) at patient's floor/unit and/or counseling patient: Internal Medicine: Result - Labs CBC & Chem 7: 05/10/19 10:03 05/10/19 01:45 Labs: Short CBC 05/09/19 05/10/19 05/10/19 Range/Units 19:32 01:45 10:03 WBC 8.7 7.8 8.9 (4.3-11.1) K/mcL Hgb 13.6 13.0 13.9 (11.5-15.4) g/dL Hct 41.3 39.6 42.5 (35.3-44.9) % Plt Count 257 253 279 (140-400) K/mcL Neutrophils # 5.8 (1.6-8.9) K/mcL BMP 05/09/19 05/10/19 19:32 01:45 Sodium 145 140 Potassium 3.8 3.7 Chloride 105 108 H Carbon Dioxide 23 23 BUN 23 H 21 H Creatinine 1.04 0.94 Glucose 127 H 97 Calcium 9.3 9.1 Cardiac Enzymes 05/09/19 05/10/19 05/10/19 Range/Units 19:32 01:45 08:59 Troponin I < 0.03 0.13 H* 0.35 H* (< 0.04) ng/mL Liver Function 05/09/19 05/10/19 Range/Units 19:32 01:45 Total Bilirubin 0.3 0.5 (0.3-1.0) mg/dL AST 23 19 (13-39) Units/L ALT 27 24 (7-52) Units/L Alkaline Phosphatase 50 44 (34-104) Units/L Albumin 4.2 3.7 (3.5-5.7) g/dL - ABG Interpretation ABG results: PT/INR, D-dimer PT 12.2 Seconds (9.4-12.1) H 05/10/19 10:03 Consult Discharge Plan - Plan Referrals: NONE,PCP [Primary Care Provider] - (3) Cardiomyopathy Qualifiers: Cardiomyopathy type: unspecified Qualified Code(s): I42.9 - Cardiomyopathy, unspecified (4) CHF (congestive heart failure) Qualifiers: Heart failure type: systolic Heart failure chronicity: unspecified Qualified Code(s): I50.20 - Unspecified systolic (congestive) heart failure
[2019-05-10] MEDS ORDERED: Furosemide 40 MG/4 ML VIAL IVP ONE (17:12)
[2019-05-10] MEDS ORDERED: Furosemide 20 MG/2 ML VIAL IVP ONE (18:32)
--- NOTE | 2019-05-10 18:46 | Electrocardiograph Report ---
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
--- NOTE | 2019-05-10 19:10 | Electrocardiograph Report ---
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
[2019-05-10] MEDS: Aspirin 81 MG TAB.CHEW PO SCH ×2 (19:28→23:07)
[2019-05-10] MEDS: Acetaminophen 325 MG TABLET PO PRN (19:29)
[2019-05-10] MEDS: Metoprolol XL (24 HR) Succ 50 MG TAB.ER.24H PO SCH ×2 (23:04→23:07)
[2019-05-11 03:38] LABS: BUN/Creatinine Ratio 16 (6-26); Blood Urea Nitrogen 16 mg/dL (6-20); Calcium 9.2 mg/dL (8.6-10.3); Carbon Dioxide 25 mEq/L (23-29); Chloride 106 mEq/L (98-107); Glucose 103 mg/dL (70-105); Magnesium 2.1 mg/dL (1.6-2.6); Osmolality,Calculated 295 (280-300); Potassium 3.9 mEq/L (3.5-5.1); Sodium 142 mEq/L (136-145); eGFR For African Americans > 60 (> 60); eGFR For Non-African Americans 56 (> 60)
[2019-05-11] MEDS: Levothyroxine 25 MCG TABLET PO SCH (05:12)
--- NOTE | 2019-05-11 08:23 | Cardiology Progress Note ---
Date of Encounter: 05/11/19 Time of Encounter: 08:23 Assessment and Plan (1) Nonischemic cardiomyopathy Current Visit: Yes Status: Acute Unknown etiology. LHC performed on 05/10/2019 was negative for CAD. Upon further discussion with the patient regarding her symptoms, she estimates that she first began noticing increased shortness of breath and fatigue several months ago. She denies any ongoing chest pain/discomfort or palpitations. Echocardiogram performed on 05/01/2019 was significant for LVEF 15-20%. Mildly dilated left ventricle. Severe global left ventricular systolic dysfunction. Atypical septal motion consistent with bundle branch block. Normal right ventricular structure and function. Mild mitral regurgitation. Mild pulmonary hypertension. Due to severity of patient's CHF, she remains at an elevated risk of sudden cardiac . Recommendations: - Continue medical therapy with spironolactone 12.5mg, toprol XL 50mg, and atorvastatin 80mg. - Stop lisinopril. Start entresto 24-26mg BID. Per review of MAR, patient's last dose was administered on 05/09/2019 at 22:04; therefore, first dose scheduled for this evening. - Patient will need outpatient cardiology followup and would benefit from cardiac rehab. Recommend placement of life-vest. Anticipate repeat echocardiogram in ~3 months. - Follow sodium-restricted diet and limit daily fluid intake. (2) CHF (congestive heart failure) Current Visit: Yes Status: Chronic LVEF 15-20%. Initial laboratory studies showed mild elevation in BNP. Clinically, patient does not appear to be volume overloaded and does not appear to be in an acute CHF exacerbation. Recommendations as above for cardiomyopathy. Qualifiers: Heart failure type: systolic Heart failure chronicity: unspecified Qualified Code(s): I50.20 - Unspecified systolic (congestive) heart failure (3) Elevated troponin Current Visit: Yes Status: Acute Suspect secondary to demand ischemia. Recommendations as above for cardiomyopathy and CHF. (4) Left bundle branch block (LBBB) Current Visit: Yes Status: Chronic Discussion w patient/family: The assessment and plan as outlined above was discussed with the patient and/or family members who expressed understanding and agreement. All questions were answered. Thank you for involving us in the care of your patient. Please call with any questions. Subjective Principal diagnosis: Atypical chest pain Interval history: Patient was seen and evaluated at the bedside. She voices no complaints or concerns, and denies any recurrent episodes of chest discomfort or palpitations. No significant overnight events. . Objective Vital Signs, Last 4 Hours Temp Pulse Resp BP Pulse Ox 05/11/19 06:48 98.4 F 78 14 100/67 95 General: Conversant, No Apparent Distress HEENT: Atraumatic, Normocephaly, Mucus Membranes Moist Neck: No JVD, Normal carotid pulses Cardiac: Reg Rate and Rhythm, Normal S1 and S2, No Murmur Lungs: Normal Breath Sounds, No Wheeze, Rales, Rhonchi Neuro: Alert and responsive, No focal deficits noted Abdomen: Soft, Non-Tender Skin: No rashes noted on visualized skin Musculoskeletal: No Chest Wall Tenderness Extremities: No Clubbing, No Cyanosis, No Edema, Normal Pulses Results 05/10/19 10:03 05/11/19 02:12 Lab Results 05/10/19 05/10/19 05/10/19 08:59 10:03 10:03 WBC 8.9 Hgb 13.9 Hct 42.5 Plt Count 279 INR 1.1 Sodium Potassium Chloride Carbon Dioxide BUN Creatinine Glucose Calcium Magnesium Troponin I 0.35 H* 05/11/19 02:12 WBC Hgb Hct Plt Count INR Sodium 142 Potassium 3.9 Chloride 106 Carbon Dioxide 25 BUN 16 Creatinine 1.03 Glucose 103 Calcium 9.2 Magnesium 2.1 Troponin I Consult Discharge Plan - Plan Referrals: NONE,PCP [Primary Care Provider] - Christopher Rowe MD [Partnered Physician] - (Appointment has been requested. Our offices will call with an appointment time and date.)
[2019-05-11] MEDS: Furosemide 20 MG TABLET PO SCH (09:35)
[2019-05-11] MEDS: Spironolactone 25 MG TABLET PO SCH (09:35)
--- NOTE | 2019-05-11 14:03 | Discharge Summary ---
- NOTES TO OUTPATIENT PROVIDER Notes to Outpatient Provider: Follow up with PCP in one week. Follow up with Carwdiology in 1-2 weeks. Medications stopped: Lisinopril. New medications: Entresto 1 tab PO BID and Metoprolol XL 25mg Daily. Lasix 20 mg Daily Orders not resulted at time of discharge: Pending orders 05/10/19 11:05 Left Heart Cath [CL Cardiac Catheterization] [CL] Routine Date of Encounter: 05/11/19 Time of Encounter: 13:57 - Discharge Diagnosis (1) Atypical chest pain Priority: Primary Status: Acute (2) CHF (congestive heart failure) Priority: Primary Status: Chronic Qualifiers: Heart failure type: systolic Heart failure chronicity: unspecified Qualified Code(s): I50.20 - Unspecified systolic (congestive) heart failure (3) Cardiomyopathy Priority: Secondary Status: Acute Qualifiers: Cardiomyopathy type: unspecified Qualified Code(s): I42.9 - Cardiomyopathy, unspecified (4) Subclinical hypothyroidism Priority: Secondary Status: Chronic (5) Heart palpitations Priority: Secondary Status: Acute (6) DVT prophylaxis Priority: Secondary Status: Acute Hospital course: Ms. Johnson is a 53 year old female with a past medical history of melanoma and subclinical hypothyroidism who recently dx with severe cardiomyopathy / systolic CHF with LVEF @ 15-20%, now she presented to the ED with complaints of palpitations and SOB. Patient was found to have a new left bundle branch block on EKG of unclear chronicity and a echocardiogram demonstrating a EF of 15-20% with severe global left ventricular systolic dysfunction. Nuclear stress test was negative for ischemia. Patient was evaluated by cardiology, treated for CHF exacerbation and placed on a beta mary, JANE inhibitor and Aldactone. She was discharged with a Holter monitor with repeat echo in 4-6 weeks and follow-up with cardiology in one week after discharged. She also noted a dull achy pain under her left axilla radiating to her back. EKG Still shows Left Bundle Branch Block. 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 Her troponin started trending up, peaked at 0.35. She was started on Heparin gtt. She denied any active CP She was seen by cardiology who did LHC y/d. Her LHC showed non obstructive CAD. She did have mild CHF exacerbation so started her on IV Lasix. Pt stated she is feeling better today. At this point cardiology recommended to start her on Entresto. She if off the Lisinopril for 36 hrs, so started her on Entresto today. Also will d/c her home with Lifevest. - Time Spent with Patient Total time spent providing and/or coordinating discharge services: - Discharge Medications Prescriptions: New Sacubitril/Valsartan 24/26 mg [Entresto 24 mg-26 mg Tablet] 1 tab PO BID #60 tablet Metoprolol Succinate [Kapspargo Sprinkle] 25 mg PO DAILY #30 cap.spr.24 Furosemide [Lasix] 20 mg PO DAILY #30 tablet Levothyroxine [Synthroid] 25 mcg PO DAILY@0630 #30 tablet Continued Spironolactone [Aldactone] 12.5 mg PO DAILY 30 Days #30 tablet Aspirin 81 mg PO DAILY 30 Days #30 tab.chew Atorvastatin Calcium [Lipitor] 80 mg PO HS Discontinued Metoprolol XL (24 HR) Succ [Toprol Xl] 50 mg PO DAILY 30 Days #30 tab.er.24h Lisinopril [Zestril] 2.5 mg PO DAILY 30 Days #30 tablet Home Medications: Aspirin 81 mg PO DAILY 30 Days #30 tab.chew 05/03/19 [Rx] Spironolactone [Aldactone] 12.5 mg PO DAILY 30 Days #30 tablet 05/03/19 [Rx] Atorvastatin Calcium [Lipitor] 80 mg PO HS 05/10/19 [History] Furosemide [Lasix] 20 mg PO DAILY #30 tablet 05/11/19 [Rx] Levothyroxine [Synthroid] 25 mcg PO DAILY@0630 #30 tablet 05/11/19 [Rx] Metoprolol Succinate [Kapspargo Sprinkle] 25 mg PO DAILY #30 cap.spr.24 05/11/19 [Rx] Sacubitril/Valsartan 24/26 mg [Entresto 24 mg-26 mg Tablet] 1 tab PO BID #60 tablet 05/11/19 [Rx] Allergies/Adverse Reactions: Allergy/AdvReac Type Severity Reaction Status Date / Time Sulfa (Sulfonamide Allergy Rash Verified 05/10/19 21:09 Antibiotics) Date of admission: 05/10/19 12:15 Primary care physician: PCP NONE Consults: 05/09/19 21:21 Consult to Cardiology [CONS] Routine Comment: Consulting Provider: Cardiology June Reason for Consult: Patient returning with Palpatations/Atypical Chest Pain Call Completed: No - Constitutional Vitals: Temp Pulse Resp BP Pulse Ox 98.2 F 97 14 114/78 98 05/11/19 13:16 05/11/19 13:16 05/11/19 13:16 05/11/19 13:16 05/11/19 13:16 General appearance: Present: cooperative, A&O X 3, no acute distress, answers questions appropriately Exam: Gen: Alert, awake, Oriented to time,place and person Chest: Diminished breath sounds B/L, No wheezing, No crackles, No rales Heart: S1S2+ RRR No murmurs Abd: Soft, NT, BS +, No organomegaly Ext: No edema, pulses are palpable, No calf tenderness Neuro : No acute focal neuro deficits noticed Skin: No rash. - Patient Status Disposition: Home, Self-Care Condition: Good Overall status at discharge: patient is back to baseline - Discharge Instructions Follow Up With: NONE,PCP [Primary Care Provider] - Christopher Rowe MD [Partnered Physician] - (Appointment has been requested. Our offices will call with an appointment time and date.) Ruy Arevalo DO [Partnered Physician] - - Diet and Activity Activity: increase activity as tolerated
[2019-05-11] MEDS: SACUBITRIL/VALSARTAN 24/26 MG TABLET PO SCH (21:48)
[2019-05-11] MEDS: Aspirin 81 MG TAB.CHEW PO SCH (21:48)
[2019-05-11] MEDS: Metoprolol XL (24 HR) Succ 50 MG TAB.ER.24H PO SCH (21:48)
[2019-05-12] MEDS: Levothyroxine 25 MCG TABLET PO SCH (05:42)
[2019-05-12] MEDS: SACUBITRIL/VALSARTAN 24/26 MG TABLET PO SCH (08:50)
[2019-05-12] MEDS: Spironolactone 25 MG TABLET PO SCH (08:51)
[2019-05-12] MEDS: Furosemide 20 MG TABLET PO SCH (08:52)
[2019-05-12 10:17] VITALS: BP 108/72
--- NOTE | 2019-05-12 11:05 | Event Note ---
Date of Encounter: 05/12/19 Time of Encounter: 10:00 - Cardiology Event Note Seen and examined. CHF teaching discussed including the importance of medication compliance and adherence to Na/fluid restricted diet. Continue BB, diuretics, and Entresto. Patient has been discharged, awaiting LifeVest application. executive meeting manager following to coordinate. No further inpt recommendations, Cardiology will sign-off. Please call with questions.
--- NOTE | 2019-05-12 14:01 | Internal Med Progress Note ---
Hospitalist Progress Note - Encounter Date of Encounter: 05/12/19 Time of Encounter: 13:59 - Subjective Interval History: Ms. Johnson is a 53 year old female with a past medical history of melanoma and subclinical hypothyroidism who recently dx with severe cardiomyopathy / systolic CHF with LVEF @ 15-20%, now she presented to the ED with complaints of p alpitations and SOB. Patient was found to have a new left bundle branch block on EKG of unclear chronicity and a echocardiogram demonstrating a EF of 15-20% with severe global left ventricular systolic dysfunction. Nuclear stress test was negative for ischemia. Patient was evaluated by cardiology, treated for CHF exacerbation and placed on a beta mary, JANE inhibitor and Aldactone. She was discharged with a Holter monitor with repeat echo in 4-6 weeks and follow-up with cardiology in one week after discharged. She also noted a dull achy pain under her left axilla radiating to her back. EKG Still shows Left Bundle Branch Block. Patient was admitted in the hospital and placed on court recording monitor. Her troponin started trending up, peaked at 0.35. She was started on Heparin gtt. She denied any active CP She was seen by cardiology who did LHC. Her LHC showed non obstructive CAD. She did have mild CHF exacerbation so started her on IV Lasix. Pt stated she is feeling better today. At this point cardiology recommended to start her on Entresto. She is off the Lisinopril for 36 hrs, so started her on Entresto y/d. Pt was unable to go home y/d since life vest not set it up. She denied any CP / SOB today. No events over night - Exam Vitals: Temp Pulse Resp BP Pulse Ox 98.2 F 78 95 108/72 96 05/12/19 10:16 05/12/19 07:29 05/12/19 10:16 05/12/19 10:16 05/12/19 07:29 Exam: Gen: Alert, awake, Oriented to time,place and person Chest: Diminished breath sounds B/L, No wheezing, No crackles, No rales Heart: S1S2+ RRR No murmurs Abd: Soft, NT, BS +, No organomegaly Ext: No edema, pulses are palpable, No calf tenderness Neuro : No acute focal neuro deficits noticed Skin: No rash. - Assessment and Plan (1) Atypical chest pain Current Visit: Yes Status: Acute Assessment and Plan: s/p LHC Non obstructive CAD cont ASA, Lipitor, Metoprolol, and entresto (2) NSTEMI (non-ST elevated myocardial infarction) Current Visit: Yes Status: Acute Assessment and Plan: She did have NSTEMI - Trop peaked at 0.35 Cont ASA,Lipitor, Metoprolol, Initially started her on Heparin gtt However her LHC showed non obstructive CAD (3) CHF (congestive heart failure) Current Visit: Yes Status: Acute Assessment and Plan: TTE 05/01/19: LVEF 15-20%, mildly dilated LV, severe global LV systolic dysfunction, no LV thrombus, mild MR, mild PH, normal RV structure and function. In mild exacerbation given lasix IV x 1 dose resumed home meds, ASA, Lipitor, Aldactone , Metoprolol and Entresto (4) Cardiomyopathy Current Visit: Yes Status: Acute Assessment and Plan: Waiting for Life vest placement d/c home after life vest placed (5) Subclinical hypothyroidism Current Visit: No Status: Chronic Assessment and Plan: cont levothyroxine (6) DVT prophylaxis Current Visit: No Status: Acute Assessment and Plan: Subcutaneous heparin - Time Spent with Patient Total time spent is greater than 50% in coordination of care (as documented) at patient's floor/unit and/or counseling patient: Internal Medicine: Result - Labs CBC & Chem 7: 05/10/19 10:03 05/11/19 02:12 - ABG Interpretation ABG results: PT/INR, D-dimer PT 12.2 Seconds (9.4-12.1) H 05/10/19 10:03 Consult Discharge Plan - Plan Referrals: Magaly Weinberg CNP [Advanced Practice Nurse] - (Appt has been requested. ) Christopher Rowe MD [Partnered Physician] - (Appointment has been requested. Our offices will call with an appointment time and date.) Ruy Arevalo DO [Partnered Physician] - (Appt has been requested. ) Prescriptions: Sacubitril/Valsartan 24/26 mg [Entresto 24 mg-26 mg Tablet] 1 tab PO BID #60 tablet Metoprolol Succinate [Kapspargo Sprinkle] 25 mg PO DAILY #30 cap.spr.24 Furosemide [Lasix] 20 mg PO DAILY #30 tablet Levothyroxine [Synthroid] 25 mcg PO DAILY@30 #30 tablet (3) CHF (congestive heart failure) Qualifiers: Heart failure type: systolic Heart failure chronicity: acute on chronic Qualified Code(s): I50.23 - Acute on chronic systolic (congestive) heart failure (4) Cardiomyopathy Qualifiers: Cardiomyopathy type: unspecified Qualified Code(s): I42.9 - Cardiomyopathy, unspecified
== END 2019-05-12 18:49 | disposition home or self-care (01) | DRG 192 ==
LOC: 3BNU 18:59 → EMEROOARM 18:59 → 3BNU 21:29 → SUATTDRO 05-10 12:15
PROVIDERS: ADMIT Internal Medicine; ATTEND Family Medicine